=== PATIENT | female | born 1995 | race Hispanic/Latino ===

== ENCOUNTER 2018-11-03 08:34 | Emergency (ER) | payer MEDICAID ==
[2018-11-03 09:12] VITALS: BP 160/88
[2018-11-03 09:48] LABS: Basophils # (Auto) 0.1 K/mm3 (0.0-0.1); Basophils % (Auto) 0.8 % (0.0-1.8); Eosinophils # (Auto) 0.1 K/mm3 (0.0-0.4); Eosinophils % (Auto) 1.1 % (0.0-4.3); Hematocrit 37.1 % (30.3-42.9); Hemoglobin 12.3 gm/dl (10.1-14.3); Lymphocytes # (Auto) 2.5 K/mm3 (1.2-5.4); Lymphocytes % (Auto) 20.7 % (13.4-35.0); Mean Corpuscular HGB Conc 33 % (30-34); Mean Corpuscular Volume 89 fl (79-97); Monocytes # (Auto) 0.5 K/mm3 (0.0-0.8); Monocytes % (Auto) 4.5 % (0.0-7.3); Platelet Count 302 K/mm3 (140-440); Red Blood Count 4.18 M/mm3 (3.65-5.03); Red Cell Distribution Width 15.6 % (13.2-15.2)
--- NOTE | 2018-11-03 10:37 | Emergency Department Report ---
ED Female HPI - General Chief complaint: Vaginal Bleeding Stated complaint: 17WKS PREG/VAGINAL BLEEDING Time Seen by Provider: 11/03/18 10:19 Source: patient Mode of arrival: Ambulatory Limitations: No Limitations - History of Present Illness Initial comments: Eloise is a very pleasant 23-year-old female who presents with vaginal spotting which began today. She has mild pelvic cramping. The bleeding is less than menstrual flow. She has been followed closely by [facility] and high risk maternal- medicine. First , treated by premature and preeclampsia. She is concerned for miscarriage. She has one healthy 3-year-old. She has been doing well throughout this . ultrasound scheduled in 2 weeks. She's had a normal ultrasound a few weeks prior. FERNANDA 04/10/2019 Complaint: vaginal bleeding -: Gradual, This morning Severity: mild Quality: cramping Consistency: constant Improves with: none Worsens with: none Are you Now?: Yes - Related Data Home Medications Medication Instructions Recorded Confirmed Last Taken No Known Home Medications [No 12/16/14 12/16/14 Unknown Reported Home Medications] Allergies Allergy/AdvReac Type Severity Reaction Status Date / Time No Known Allergies Allergy Unverified 07/09/13 10:47 ED Review of Systems ROS: Stated complaint: 17WKS PREG/VAGINAL BLEEDING Other details as noted in HPI Comment: All other systems reviewed and negative Constitutional: denies: fever, malaise Respiratory: denies: cough Cardiovascular: denies: chest pain ED Past Medical Hx - Past Medical History Previous Medical History?: Yes Hx Hypertension: Yes Hx Congestive Heart Failure: No Hx Diabetes: No Hx Deep Vein Thrombosis: No Hx Renal Disease: No Hx Sickle Cell Disease: No Hx Seizures: No Hx Asthma: Yes (Albuterol, Adavir, Flovent) Hx COPD: No Hx HIV: No - Surgical History Past Surgical History?: No - Social History Smoking Status: Current Every Day Smoker Substance Use Type: None - Medications Home Medications: Home Medications Medication Instructions Recorded Confirmed Last Taken Type No Known Home Medications [No 12/16/14 12/16/14 Unknown History Reported Home Medications] ED Physical Exam - General Limitations: No Limitations General appearance: alert, in no apparent distress - Head Head exam: Present: atraumatic, normocephalic - Eye Eye exam: Present: normal appearance - ENT ENT exam: Present: mucous membranes moist - Neck Neck exam: Present: normal inspection, full ROM. Absent: tenderness, meningismus - Respiratory Respiratory exam: Present: normal lung sounds bilaterally. Absent: respiratory distress, wheezes, rales, rhonchi - Cardiovascular Cardiovascular Exam: Present: regular rate, normal rhythm, normal heart sounds. Absent: systolic murmur, diastolic murmur, rubs, gallop - GI/Abdominal GI/Abdominal exam: Present: soft, normal bowel sounds. Absent: distended, tenderness, guarding, rebound - Extremities Exam Extremities exam: Present: normal inspection - Back Exam Back exam: Present: normal inspection - Neurological Exam Neurological exam: Present: alert, oriented X3 - Psychiatric Psychiatric exam: Present: normal affect, normal mood - Skin Skin exam: Present: warm, dry, intact, normal color. Absent: rash ED Course Vital Signs 11/03/18 09:09 Temperature 98.0 F Pulse Rate 110 H Respiratory 20 Rate Blood Pressure 160/88 O2 Sat by Pulse 99 Oximetry ED Medical Decision Making - Lab Data Result diagrams: 11/03/18 09:24 Laboratory Results - last 24 hr 11/03/18 11/03/18 09:24 09:24 WBC 12.1 H RBC 4.18 Hgb 12.3 Hct 37.1 MCV 89 MCH 29 MCHC 33 RDW 15.6 H Plt Count 302 Lymph % (Auto) 20.7 [place] % (Auto) 4.5 Eos % (Auto) 1.1 Baso % (Auto) 0.8 Lymph # 2.5 [place] # 0.5 Eos # 0.1 Baso # 0.1 Seg Neutrophils % 72.9 H Seg Neutrophils # 8.8 H Blood Type A POSITIVE - Medical Decision Making Crystal presents with threatened miscarriage at 17 weeks 3 days gestation. She was given reassurance and instructions for pelvic rest. Blood type A+. Encouraged to follow up with her primary donor technician at [facility] Critical care attestation.: If time is entered above; I have spent that time in minutes in the direct care of this critically ill patient, excluding procedure time. ED Disposition Clinical Impression: Threatened miscarriage Disposition: DC-01 TO HOME OR SELFCARE Is pt being admited?: No Does the pt Need Aspirin: No Condition: Stable Instructions: Threatened Miscarriage (ED) Additional Instructions: Please call your donor technician today.
== END 2018-11-03 10:42 | disposition home or self-care (01) ==
LOC: ED 08:34
DX: O20.0 Threatened abortion (principal); I10 Essential (primary) hypertension; J45.909 Unspecified asthma, uncomplicated; F17.200 Nicotine dependence, unspecified, uncomplicated; Z3A.17 17 weeks gestation of pregnancy
CPT/HCPCS: 36415; 84703; 85025; 86900; 86901; 99283

== ENCOUNTER 2019-03-10 12:55 | Inpatient (IN) | payer MEDICAID ==
[2019-03-10] MEDS ORDERED: LACTATED RINGERS 500 ML IV ONE (13:32)
[2019-03-10 14:27] LABS: Bacteria,Urine 2+ /HPF (Negative); Bilirubin,Urine NEG (Negative); Blood,Urine NEG (Negative); Color,Urine Amber (Yellow); Mucus,Urine 3+ /HPF; Urobilinogen,Urine < 2.0 mg/dL (<2.0)
[2019-03-10 14:28] LABS: WBC,Urine > 182.0 /HPF (0.0-6.0)
[2019-03-10 14:35] LABS: Hematocrit 34.3 % (30.3-42.9); Hemoglobin 11.9 gm/dl (10.1-14.3); Mean Corpuscular HGB Conc 35 % (30-34); Mean Corpuscular Volume 93 fl (79-97); Platelet Count 199 K/mm3 (140-440); Red Blood Count 3.68 M/mm3 (3.65-5.03); Red Cell Distribution Width 16.2 % (13.2-15.2)
[2019-03-10 14:54] LABS: Creatinine,Urine 195.4 mg/dL (0.1-20.0)
[2019-03-10 15:05] LABS: Creatinine 24 Hour,Urine 1.9 (0.8-2.8)
[2019-03-10 15:35] LABS: Alanine Aminotransferase 12 units/L (7-56)
[2019-03-10] MEDS ORDERED: TYLENOL PO PRN ×2 (16:01→21:43)
[2019-03-10] MEDS ORDERED: AMBIEN PO PRN (16:01)
[2019-03-10] MEDS ORDERED: DEEP SEA NS PRN (16:01)
[2019-03-10] MEDS ORDERED: COLACE PO PRN (16:01)
[2019-03-10] MEDS ORDERED: ZOFRAN IV PRN (16:01)
--- NOTE | 2019-03-10 16:20 | History and Physical Report ---
<JOHNATHON MENDEZ - Last Filed: 03/10/19 19:05> History of Present Illness Date of examination: 03/10/19 (pt admitted PreE @ 35w4d) History of present illness: pt sent from office with elevated BPs Pt had collected her 24hr urine Brought to the hospital for results and PIH labs. EDC Confirmation: 04/10/2019 Gestational Age: 11 4/7 weeks Past History : 2 Term Births: 0 Premature Births: 1 Living Children: 1 Para: 1 Mult. Births: 0 Prev : 0 Prev. attempt? none Aborta: 0 Elect. Ab: 0 Spont. Ab: 0 Ectopics: 0 # 1 Delivery date: 12/17/2014 Weeks Gestation: 35 Delivery type: Anesthesia type: epidural Delivery location: [facility] Sex: Male weight: 5#4 Name: Aashish Comments: SROM?/ IOL for PIH Past Medical History: anxiety and depression, taking buspar acid reflux, tums asthma, followed by primary care, rescue inhaler, last use 2-3 months ago Past Surgical History: wisdom teeth extraction, no complications with anesthesia fracture L knee and broken ankles bilaterally Past Medical History Surgery (Non-auctioneer tobacco): wisdom teeth extraction, no complications with anesthesia fracture L knee and broken ankles bilaterally Abnormal PAP: negative ROBIN Exposure: negative Infertility: negative Uterine Anomaly: negative Uterine Surgery (not C/S): negative Other Gynecologic Problems: negative Family Hx: mgf-htn, dm, stroke, asthma pgf-dm, depression pgm- cancer of heart, asthma mother, TIA x4, lung disease brother- autism, ADHD, ADD 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 tobacco smoker x10 years, 3-4 cig/day. Infection History Hx of STD: chlamydia HIV Risk Eval: low risk Hepatitis B Risk Eval: low risk Personal hx. of genital herpes: no Partner hx. of genital herpes: no Rash, Viral, or Febrile illness since last LMP? no Varicella/Chicken Pox Status: Immunized Infection History Comments: chlamydia 2014 Genetic History Congenital Heart Defect: Mom: no Dad: no Gill Disease: Mom: no Dad: no Thalassemia Mom: no Dad: no Neural Tube Defect Mom: no Dad: no Down's Syndrome Mom: no Dad: no Olmna-Sachs Mom: no Dad: no Sickle Cell Disease/Trait Mom: no Dad: no Hemophilia Mom: no Dad: no Muscular Dystrophy Mom: no Dad: no Cystic Fibrosis Mom: no Dad: no Bucks Chorea Mom: no Dad: no Mental Retardation Mom: no Dad: no Fragile X Mom: no Dad: no Other Genetic/Chromosomal Disorder Mom: no Dad: no Child w/other defect Mom: no Dad: no Enviromental Exposures Enviromental Exposures Reviewed Xray Exposure: no Medication, drug, or alcohol use since LMP: no Chemical/Other Exposure: no Exposure to Cat Liter: no Hx of Parvovirus (Fifth Disease): no Occupational Exposure to Children: none Active Medications: BUSPIRONE 15 MG NEEDED () PNV () Current Allergies (reviewed today): No known allergies Past History - Obstetrical History Expected Date of Delivery: 04/10/19 Actual Gestation: 35 Week(s) 4 Day(s) : 2 Para: 1 Hx # Term Pregnancies: 0 Number of Pregnancies: 1 (35w IOL for PreE) Spontaneous Abortions: 0 Induced : 0 Number of Living Children: 1 Medications and Allergies Allergies Allergy/AdvReac Type Severity Reaction Status Date / Time No Known Allergies Allergy Verified 03/10/19 13:31 Home Medications Medication Instructions Recorded Confirmed Last Taken Type No Known Home Medications [No 12/16/14 12/16/14 Unknown History Reported Home Medications] Active Meds: Active Medications Acetaminophen (Tylenol) 650 mg PO Q4H PRN PRN Reason: Pain MILD(1-3)/Fever >100.5/BOWLING Betamethasone Acet/Betameth SodPhos (Celestone Soluspan) 12 mg IM Q24H JONNA Stop: 03/11/19 17:01 Docusate Sodium (Colace) 100 mg PO Q12H PRN PRN Reason: Constipation Guaifenesin (Guaifenesin Dm Syrup) 10 ml PO Q6H PRN PRN Reason: Cough Lactated Ringer's (Lactated Ringers) 1,000 mls @ 125 mls/hr IV DIRECT JONNA Magnesium Sulfate (Magnesium Sulfate 40gm/1000ml) 40 gm in 1,000 mls @ 25 mls/hr IV DIRECT JONNA Magnesium Sulfate (Magnesium Sulfate 4gm/100ml) 4 gm in 100 mls @ 300 mls/hr IV ONCE ONE Stop: 03/10/19 17:20 Multivitamins/Iron/Calcium ( Vitamin) 1 each PO QDAY JONNA Ondansetron HCl (Zofran) 4 mg IV Q6H PRN PRN Reason: Nausea And Vomiting Sodium Chloride (Deep Sea) 2 spray NS Q4H PRN PRN Reason: Congestion Zolpidem Tartrate (Ambien) 10 mg PO ONCE PRN PRN Reason: Sleep - Vital Signs Vital signs: Vital Signs Pulse BP Pulse Ox 71 130/80 96 03/10/19 14:53 03/10/19 14:53 03/10/19 14:53 Temp Pulse Resp BP Pulse Ox 98.7 F 86 20 147/75 95 03/10/19 15:11 03/10/19 16:08 03/10/19 15:11 03/10/19 16:08 03/10/19 15:28 - Physical Exam Breasts: Positive: deferred Cardiovascular: Regular rate, Normal S1, Normal S2 Lungs: Positive: Clear to auscultation Abdomen: Positive: normal appearance, soft, normal bowel sounds. Negative: distention, tenderness Genitourinary (Female): Positive: normal external genitalia Vulva: both: normal Vagina: Positive: normal moisture. Negative: discharge Cervix: Negative: lesion, discharge Uterus: Positive: normal size, normal contour Adnexa: both: normal Anus/Rectum: Positive: normal perianal skin, heme negative. Negative: rectal mass, hemorrhoids Extremities: Positive: edema Deep Tendon Reflex Grade: Normal +2 - Obstetrical FHR: category 1 Uterine Contraction Monitor Mode: External Cervical Dilatation: 0.5 Cervical Effacement Percentage: 30 station: -4 Uterine Contraction Pattern: Absent Uterine Tone Measurement Phase: Resting Results Result Diagrams: 03/10/19 13:35 03/10/19 13:35 Abnormal lab results 03/10/19 03/10/19 03/10/19 Range/Units 13:35 13:35 Unknown MCHC 35 H (30-34) % RDW 16.2 H (13.2-15.2) % Creatinine 0.4 L (0.7-1.2) mg/dL Ur Specific Mize 1.032 H (1.003-1.030) Urine WBC (Auto) > 182.0 H (0.0-6.0) /HPF U Epithel Cells (Auto) 38.0 H (0-13.0) /HPF Urine Creatinine (0.1-20.0) mg/dL Ur Total Protein 24 Hr (2-200) mg/dL Urine Total Protein (5-11.8) mg/dL 03/10/19 Range/Units Unknown MCHC (30-34) % RDW (13.2-15.2) % Creatinine (0.7-1.2) mg/dL Ur Specific Mize (1.003-1.030) Urine WBC (Auto) (0.0-6.0) /HPF U Epithel Cells (Auto) (0-13.0) /HPF Urine Creatinine 195.4 H (0.1-20.0) mg/dL Ur Total Protein 24 Hr 475.00 H (2-200) mg/dL Urine Total Protein 50 H (5-11.8) mg/dL All other labs normal. HBsAg Screen Negative Negative *1 RPR Non Reactive Non Reactive *2 Rubella Antibodies, IgG 1.32 index Immune >0.99 *3 Non-immune <0.90 Equivocal 0.90 - 0.99 Immune >0.99 ABO Grouping A *4 Rh Factor Positive *5 Please note: Prior records for this patient's ABO / Rh type are not available for additional verification. Antibody Screen Negative Negative *6 WBC [H] 11.2 x10E3/uL 3.4-10.8 *7 RBC 3.97 x10E6/uL 3.77-5.28 *8 Hemoglobin 11.5 g/dL 11.1-15.9 *9 Hematocrit 35.5 % 34.0-46.6 *10 MCV 89 fL 79-97 *11 MCH 29.0 pg 26.6-33.0 *12 MCHC 32.4 g/dL 31.5-35.7 *13 RDW [H] 15.6 % 12.3-15.4 *14 Platelets 296 x10E3/uL 150-379 *15 Neutrophils 67 % Not Estab. *16 Lymphs 26 % Not Estab. *17 Monocytes 6 % Not Estab. *18 Eos 1 % Not Estab. *19 Basos 0 % Not Estab. *20 ! Immature Cells <No Reported Value> *21 Neutrophils (Absolute) [H] 7.5 x10E3/uL 1.4-7.0 *22 Lymphs (Absolute) 2.8 x10E3/uL 0.7-3.1 *23 Monocytes(Absolute) 0.6 x10E3/uL 0.1-0.9 *24 Eos (Absolute) 0.1 x10E3/uL 0.0-0.4 *25 Baso (Absolute) 0.0 x10E3/uL 0.0-0.2 *26 ! Immature Granulocytes 0 % Not Estab. *27 ! Immature Grans (Abs) 0.0 x10E3/uL 0.0-0.1 *28 ! NRBC <No Reported Value> *29 Hematology Comments: <No Reported Value> *30 Tests: (2) AFP Tetra (215134) ! Results Report *31 ! Test Results: *Screen Negative* *32 Tests: (3) Panel 136701 ([id number]) HIV Screen 4th Generation wRfx Non Reactive Non Reactive *55 Tests: (4) HCV Ab w/Rflx to Verification (320844) ! HCV Ab <0.1 s/co ratio 0.0-0.9 *56 Tests: (5) Comment: ([id number]) ! Comment: SPRCS *57 Non reactive HCV antibody screen is consistent with no HCV infection, unless recent infection is suspected or other evidence exists to indicate HCV infection. Tests: (6) Urine Culture, Routine ([id number]) Urine Culture, Routine Final report *58 Tests: (7) Result ([id number]) ! Result 1 No growth *59 Assessment and Plan 23yo @ 35 weeks with PreE 24hr urine protein is 475 BP 120-130/70 DTRs 2+, LE edema. Pt c/o BOWLING over the last several days Pt states it has lessened since she has been here resting. aware Orders in EMR BMZ,MGSO4, US ordered. - Patient Problems (1) Pre-eclampsia during in third trimester, antepartum Current Visit: Yes Status: Acute (2) 35 weeks gestation of Current Visit: Yes Status: Acute <ISAAC QUINONEZ - Last Filed: 03/10/19 21:56> History of Present Illness Date of admission: 03/10/19 18:12 Medications and Allergies Active Meds: Active Medications Acetaminophen (Tylenol) 650 mg PO Q6H PRN PRN Reason: Pain MILD(1-3)/Fever >100.5/BOWLING Betamethasone Acet/Betameth SodPhos (Celestone Soluspan) 12 mg IM Q24H JONNA Stop: 03/11/19 17:01 Last Admin: 03/10/19 18:44 Dose: 12 mg Documented by: Docusate Sodium (Colace) 100 mg PO Q12H PRN PRN Reason: Constipation Guaifenesin (Guaifenesin Dm Syrup) 10 ml PO Q6H PRN PRN Reason: Cough Lactated Ringer's (Lactated Ringers) 1,000 mls @ 125 mls/hr IV DIRECT JONNA Last Admin: 03/10/19 18:43 Dose: 125 mls/hr Documented by: Multivitamins/Iron/Calcium ( Vitamin) 1 each PO QDAY [facility] Ondansetron HCl (Zofran) 4 mg IV Q6H PRN PRN Reason: Nausea And Vomiting Sodium Chloride (Deep Sea) 2 spray NS Q4H PRN PRN Reason: Congestion Zolpidem Tartrate (Ambien) 10 mg PO ONCE PRN PRN Reason: Sleep - Vital Signs Vital signs: Vital Signs Pulse BP Pulse Ox 71 130/80 96 03/10/19 14:53 03/10/19 14:53 03/10/19 14:53 Temp Pulse Resp BP Pulse Ox 98.7 F 76 20 122/70 94 03/10/19 15:11 03/10/19 21:49 03/10/19 15:11 03/10/19 20:38 03/10/19 21:49 Results Result Diagrams: 03/10/19 13:35 03/10/19 13:35 Abnormal lab results 03/10/19 03/10/19 03/10/19 Range/Units 13:35 13:35 Unknown MCHC 35 H (30-34) % RDW 16.2 H (13.2-15.2) % Creatinine 0.4 L (0.7-1.2) mg/dL Ur Specific Mize 1.032 H (1.003-1.030) Urine WBC (Auto) > 182.0 H (0.0-6.0) /HPF U Epithel Cells (Auto) 38.0 H (0-13.0) /HPF Urine Creatinine (0.1-20.0) mg/dL Ur Total Protein 24 Hr (2-200) mg/dL Urine Total Protein (5-11.8) mg/dL 03/10/19 Range/Units Unknown MCHC (30-34) % RDW (13.2-15.2) % Creatinine (0.7-1.2) mg/dL Ur Specific Mize (1.003-1.030) Urine WBC (Auto) (0.0-6.0) /HPF U Epithel Cells (Auto) (0-13.0) /HPF Urine Creatinine 195.4 H (0.1-20.0) mg/dL Ur Total Protein 24 Hr 475.00 H (2-200) mg/dL Urine Total Protein 50 H (5-11.8) mg/dL All other labs normal. Assessment and Plan - Patient Problems (1) 35 weeks gestation of Current Visit: Yes Status: Acute (2) Chronic hypertension with superimposed preeclampsia Current Visit: Yes Status: Acute Plan to address problem: Complete BMZ Will plan for Induction if she progresses to severe features. Otherwise observe closely (3) BMI 45.0-49.9, adult Current Visit: Yes Status: Acute (4) Anxiety Current Visit: Yes Status: Chronic (5) Chronic GERD Current Visit: Yes Status: Acute (6) Asthma Current Visit: Yes Status: Chronic
[2019-03-10] MEDS ORDERED: MAGNESIUM SULFATE 40GM/1000ML 40 GM/1,000 ML BAG IV SCH (17:00)
[2019-03-10] MEDS ORDERED: MAGNESIUM SULFATE 4GM/100ML 4 GM/100 ML BAG IV ONE ×2 (17:01→19:33)
--- NOTE | 2019-03-10 17:04 | Ultrasound Report ---
ULTRASOUND OBSTETRIC INDICATION: Assess well-being. Clinical Gestational Age (GA): 35 weeks, 4 days TECHNIQUE: Transabdominal. COMPARISON: None available. FINDINGS: There is a single intrauterine with a heart rate of 139 bpm. The BPP score is 8/8. IMPRESSION: Single live intrauterine with a normal biophysical profile. Signer Name: Mitesh Low MD Signed: 03/10/2019 5:00 PM Workstation Name: [id number]
--- NOTE | 2019-03-10 17:36 | Ultrasound Report ---
Follow-up OB ultrasound INDICATION: Preeclampsia. Assess well-being. COMPARISON: None available. FINDINGS: There is a single live intrauterine with a heart rate of 139 bpm. The biophysical profile s core is 8/8. IMPRESSION: Single live intrauterine with a normal biophysical profile. Signer Name: Mitesh Low MD Signed: 03/10/2019 5:32 PM Workstation Name: [id number]
[2019-03-10] MEDS: LACTATED RINGERS 1,000 ML IV SCH (18:43)
[2019-03-10] MEDS: CELESTONE SOLUSPAN IM SCH (18:44)
[2019-03-11] MEDS: LACTATED RINGERS 1,000 ML IV SCH (06:17)
--- NOTE | 2019-03-11 07:34 | Progress Note ---
Assessment and Plan patient sleeping sounding through ctx, she reports BOWLING rated 4/10 "all night" but reports BOWLING is better now. b/p 140/70's with an outlier of 157/119. Second dose of steroids due @ 1844. Pt not currently taking any antihypertensive medications. 24h urine TP 475, now hx with htn w/ superimposed pre-e. Dr. Sifuentes consulted for plan of care. - Patient Problems (1) Headache Current Visit: Yes Status: Acute Qualifiers: Headache type: tension-type Headache chronicity pattern: chronic headache (2) 35 weeks gestation of Current Visit: Yes Status: Acute (3) BMI 45.0-49.9, adult Current Visit: Yes Status: Acute (4) Chronic hypertension with superimposed preeclampsia Current Visit: Yes Status: Acute Subjective - Subjective Date of service: 03/11/19 Principal diagnosis: IUP @ 35+5, superimposed Pre-e Patient reports: new complaints (BOWLING "all night"), movement normal, contractions, no loss of fluid, no vaginal bleeding Objective - Vital Signs Vital Signs: Vital Signs - 12hr 03/10/19 03/10/19 03/10/19 20:38 20:43 20:48 Temperature Pulse Rate 74 82 86 Respiratory Rate Blood Pressure 122/70 Blood Pressure [Right] O2 Sat by Pulse 97 97 Oximetry 03/10/19 03/10/19 03/10/19 20:53 20:58 21:03 Temperature Pulse Rate 95 H 87 88 Respiratory Rate Blood Pressure Blood Pressure [Right] O2 Sat by Pulse 96 96 96 Oximetry 03/10/19 03/10/19 03/10/19 21:08 21:13 21:18 Temperature Pulse Rate 81 84 80 Respiratory Rate Blood Pressure Blood Pressure [Right] O2 Sat by Pulse 95 96 97 Oximetry 03/10/19 03/10/19 03/10/19 21:27 21:32 21:37 Temperature Pulse Rate 81 82 81 Respiratory Rate Blood Pressure Blood Pressure [Right] O2 Sat by Pulse 97 96 96 Oximetry 03/10/19 03/10/19 03/10/19 21:42 21:44 21:47 Temperature Pulse Rate 76 78 72 Respiratory Rate Blood Pressure Blood Pressure [Right] O2 Sat by Pulse 96 94 94 Oximetry 03/10/19 03/10/19 03/10/19 21:49 22:14 22:19 Temperature Pulse Rate 76 80 95 H Respiratory Rate Blood Pressure Blood Pressure [Right] O2 Sat by Pulse 94 97 96 Oximetry 03/10/19 03/10/19 03/10/19 22:24 22:29 22:34 Temperature Pulse Rate 67 68 71 Respiratory Rate Blood Pressure Blood Pressure [Right] O2 Sat by Pulse 96 96 97 Oximetry 03/10/19 03/10/19 03/10/19 22:39 22:44 22:49 Temperature Pulse Rate 80 81 77 Respiratory Rate Blood Pressure Blood Pressure [Right] O2 Sat by Pulse 96 97 96 Oximetry 03/10/19 03/10/19 03/10/19 22:54 22:59 23:04 Temperature Pulse Rate 76 90 70 Respiratory Rate Blood Pressure Blood Pressure [Right] O2 Sat by Pulse 96 96 95 Oximetry 03/10/19 03/10/19 03/10/19 23:09 23:14 23:19 Temperature Pulse Rate 69 72 75 Respiratory Rate Blood Pressure Blood Pressure [Right] O2 Sat by Pulse 95 94 94 Oximetry 03/10/19 03/10/19 03/10/19 23:20 23:24 23:26 Temperature Pulse Rate 76 70 71 Respiratory Rate Blood Pressure Blood Pressure [Right] O2 Sat by Pulse 94 95 94 Oximetry 03/10/19 03/10/19 03/10/19 23:29 23:31 23:34 Temperature Pulse Rate 70 69 69 Respiratory Rate Blood Pressure Blood Pressure [Right] O2 Sat by Pulse 96 94 95 Oximetry 03/10/19 03/10/19 03/10/19 23:37 23:39 23:44 Temperature Pulse Rate 70 76 71 Respiratory Rate Blood Pressure Blood Pressure [Right] O2 Sat by Pulse 94 94 93 Oximetry 03/10/19 03/10/19 03/10/19 23:49 23:50 23:54 Temperature Pulse Rate 80 75 90 Respiratory Rate Blood Pressure Blood Pressure [Right] O2 Sat by Pulse 95 94 93 Oximetry 03/10/19 03/10/19 03/11/19 23:55 23:59 00:02 Temperature Pulse Rate 70 83 82 Respiratory Rate Blood Pressure Blood Pressure [Right] O2 Sat by Pulse 93 94 94 Oximetry 03/11/19 03/11/19 03/11/19 00:04 00:09 00:14 Temperature Pulse Rate 70 69 74 Respiratory Rate Blood Pressure Blood Pressure [Right] O2 Sat by Pulse 92 93 93 Oximetry 03/11/19 03/11/19 03/11/19 00:19 00:24 00:29 Temperature Pulse Rate 67 69 71 Respiratory Rate Blood Pressure Blood Pressure [Right] O2 Sat by Pulse 93 93 93 Oximetry 03/11/19 03/11/19 03/11/19 00:34 00:35 00:39 Temperature Pulse Rate 72 76 69 Respiratory Rate Blood Pressure Blood Pressure [Right] O2 Sat by Pulse 92 94 92 Oximetry 03/11/19 03/11/19 03/11/19 00:44 00:49 00:54 Temperature Pulse Rate 76 68 72 Respiratory Rate Blood Pressure Blood Pressure [Right] O2 Sat by Pulse 93 92 93 Oximetry 03/11/19 03/11/19 03/11/19 00:57 00:59 01:02 Temperature Pulse Rate 81 64 72 Respiratory Rate Blood Pressure Blood Pressure [Right] O2 Sat by Pulse 94 95 93 Oximetry 03/11/19 03/11/19 03/11/19 01:04 01:09 01:14 Temperature Pulse Rate 72 67 71 Respiratory Rate Blood Pressure Blood Pressure [Right] O2 Sat by Pulse 94 93 93 Oximetry 03/11/19 03/11/19 03/11/19 01:19 01:24 01:29 Temperature Pulse Rate 70 69 74 Respiratory Rate Blood Pressure Blood Pressure [Right] O2 Sat by Pulse 93 94 95 Oximetry 03/11/19 03/11/19 03/11/19 01:39 01:44 01:47 Temperature Pulse Rate 72 72 101 H Respiratory Rate Blood Pressure Blood Pressure [Right] O2 Sat by Pulse 94 94 94 Oximetry 03/11/19 03/11/19 03/11/19 01:49 01:54 01:59 Temperature Pulse Rate 96 H 71 69 Respiratory Rate Blood Pressure Blood Pressure [Right] O2 Sat by Pulse 93 93 93 Oximetry 03/11/19 03/11/19 03/11/19 02:03 02:04 02:09 Temperature Pulse Rate 83 81 71 Respiratory Rate Blood Pressure Blood Pressure [Right] O2 Sat by Pulse 94 95 93 Oximetry 03/11/19 03/11/19 03/11/19 02:14 02:19 02:23 Temperature Pulse Rate 68 83 69 Respiratory Rate Blood Pressure Blood Pressure [Right] O2 Sat by Pulse 94 93 94 Oximetry 03/11/19 03/11/19 03/11/19 02:24 02:29 02:34 Temperature Pulse Rate 63 64 69 Respiratory Rate Blood Pressure Blood Pressure [Right] O2 Sat by Pulse 94 94 93 Oximetry 03/11/19 03/11/19 03/11/19 02:39 02:44 02:49 Temperature Pulse Rate 70 67 68 Respiratory Rate Blood Pressure Blood Pressure [Right] O2 Sat by Pulse 93 93 94 Oximetry 03/11/19 03/11/19 03/11/19 02:54 02:58 02:59 Temperature Pulse Rate 69 77 84 Respiratory Rate Blood Pressure Blood Pressure [Right] O2 Sat by Pulse 93 94 95 Oximetry 03/11/19 03/11/19 03/11/19 03:03 03:04 05:30 Temperature 98.7 F Pulse Rate 94 H 81 70 Respiratory 22 Rate Blood Pressure Blood Pressure 145/75 [Right] O2 Sat by Pulse 94 94 Oximetry 03/11/19 03/11/19 05:56 06:01 Temperature Pulse Rate 106 H 70 Respiratory Rate Blood Pressure 157/119 145/75 Blood Pressure [Right] O2 Sat by Pulse Oximetry - Exam Breasts: normal Cardiovascular: Regular rate Lungs: Clear to auscultation, Normal air movement Abdomen: Present: normal appearance, soft Vulva: both: normal Uterus: Present: normal FHR: category 1 Uterine Contraction Monitor Mode: External Uterine Contraction Frequency (min): 3-5 Uterine Contraction Pattern: Regular Uterine Tone Measurement Phase: Contraction Uterine Contraction Intensity: Mild Extremities: normal Deep Tendon Reflex Grade: Normal +2 - Labs Labs: Abnormal Labs 03/10/19 03/10/19 03/10/19 13:35 13:35 Unknown MCHC 35 H RDW 16.2 H Creatinine 0.4 L Ur Specific [place] 1.032 H Urine WBC (Auto) > 182.0 H U Epithel Cells (Auto) 38.0 H Urine Creatinine Ur Total Protein 24 Hr Urine Total Protein 03/10/19 Unknown MCHC RDW Creatinine Ur Specific [place] Urine WBC (Auto) U Epithel Cells (Auto) Urine Creatinine 195.4 H Ur Total Protein 24 Hr 475.00 H Urine Total Protein 50 H Laboratory Results - last 24 hr 03/10/19 03/10/19 03/10/19 13:35 13:35 13:35 WBC 10.7 RBC 3.68 Hgb 11.9 Hct 34.3 MCV 93 MCH 32 MCHC 35 H RDW 16.2 H Plt Count 199 Creatinine 0.4 L Estimated GFR > 60 Uric Acid 4.0 AST 17 ALT 12 Lactate Dehydrogenase 177 Urine Color Urine Turbidity Urine pH Ur Specific [place] Urine Protein Urine Glucose (UA) Urine Ketones Urine Blood Urine Nitrite Urine Bilirubin Urine Urobilinogen Ur Leukocyte Esterase Urine WBC (Auto) Urine RBC (Auto) U Epithel Cells (Auto) Urine Bacteria (Auto) Urine Mucus Urine Total Volume Urine Creatinine Ur Creatinine 24 Hour Ur Total Protein 24 Hr Urine Total Protein HIV 1&2 Antibody Rapid Non react HIV P24 Antigen Non react Blood Type Antibody Screen 03/10/19 03/10/19 03/10/19 18:26 Unknown Unknown WBC RBC Hgb Hct MCV MCH MCHC RDW Plt Count Creatinine Estimated GFR Uric Acid AST ALT Lactate Dehydrogenase Urine Color Kristie Urine Turbidity Cloudy Urine pH 5.0 Ur Specific [place] 1.032 H Urine Protein 100 mg/dl Urine Glucose (UA) Neg Urine Ketones Tr Urine Blood Neg Urine Nitrite Neg Urine Bilirubin Neg Urine Urobilinogen < 2.0 Ur Leukocyte Esterase Lg Urine WBC (Auto) > 182.0 H Urine RBC (Auto) 45.0 U Epithel Cells (Auto) 38.0 H Urine Bacteria (Auto) 2+ Urine Mucus 3+ Urine Total Volume 950 Urine Creatinine 195.4 H Ur Creatinine 24 Hour 1.9 Ur Total Protein 24 Hr 475.00 H Urine Total Protein 50 H HIV 1&2 Antibody Rapid HIV P24 Antigen Blood Type A POSITIVE Antibody Screen Negative
[2019-03-11] MEDS ORDERED: CERVIDIL VG ONE ×2 (08:01→19:00)
--- NOTE | 2019-03-11 08:06 | Event Note ---
Date: 03/11/19 pt now has superimposed pre-e w/ severe features. Will start low dose pitocin to begin induction process. Plan of care developed with Dr. Sifuentes.
[2019-03-11] MEDS ORDERED: PITOCin/NS 30 UNIT/500ML 30 UNITS/500 ML BAG IV SCH (09:00)
[2019-03-11] MEDS: MAGNESIUM SULFATE 40GM/1000ML 40 GM/1,000 ML BAG IV SCH (09:34)
[2019-03-11] MEDS: BUSPAR PO SCH (11:01)
[2019-03-11] MEDS: PRENATAL VITAMIN PO SCH (11:01)
--- NOTE | 2019-03-11 17:18 | Event Note ---
Date: 03/11/19 Pt s/p low dose pitocin and s/o second dose of BMZ. will con't MgSO4. Plan will be to allow pt to eat dinner, have pericare and then place cervidil this pm.
[2019-03-11] MEDS: CELESTONE SOLUSPAN IM SCH (18:32)
[2019-03-11] MEDS ORDERED: AMPICILLIN/NS 2 GM/100 ML 2 GM/100 ML BAG IV ONE (23:00)
[2019-03-11] MEDS ORDERED: AMPICILLIN 2 GM in NACL 0.9% 50 ML IV ONE (23:44)
[2019-03-11] MEDS ORDERED: AMPICILLIN 1 GM in NACL 0.9% 50 ML IV ONE (23:46)
--- NOTE | 2019-03-11 23:49 | Event Note ---
Date: 03/11/19 Called by RN pt c/o pain given order to check pt. Pt cx now 4-5cm. Cervidil pulled. ampicillin started and will give IV Pain meds a this time. Pt considering an epidural. Will allow antibx to go in prior to starting pitocin or AROM.
[2019-03-12] MEDS ORDERED: SUBLIMAZE IV ONE (00:07)
[2019-03-12] MEDS ORDERED: MARCAINE 0.25% INFILTRATI ONE (04:42)
[2019-03-12] MEDS ORDERED: NARCAN 2 MG/2 ML IV PRN (05:11)
--- NOTE | 2019-03-12 05:12 | Anesthesia Consultation ---
Anesthesia Consult and Med Hx Date of service: 03/12/19 - Airway Anesthetic Teeth Evaluation: Good ROM Head & Neck: Adequate Mental/Hyoid Distance: Adequate Mallampati Class: Class III Intubation Access Assessment: Probably Good - Pulmonary Exam CTA: Yes - Cardiac Exam Cardiac Exam: RRR - Pre-Operative Health Status ASA Pre-Surgery Classification: ASA3 Proposed Anesthetic Plan: Epidural - Pulmonary Hx Smoking: Yes Hx Asthma: Yes (Albuterol, Adavir, Flovent) Hx Respiratory Symptoms: No SOB: No COPD: No Home Oxygen Therapy: No Hx Pneumonia: No Hx Sleep Apnea: No - Cardiovascular System Hx Hypertension: Yes Hx Coronary Artery Disease: No Hx Heart Attack/AMI: No Hx Angina: No Hx Percutaneous Transluminal Coronary Angioplasty (PTCA): No Hx Cardia Arrhythmia: No Hx Pacemaker: No Hx Internal Defibrillator: No Hx Valvular Heart Disease: No Hx Heart Murmur: No Hx Peripheral Vascular Disease: No - Central Nervous System Hx Neuromuscular Disorder: No Hx Seizures: No CVA: No Hx Back Pain: Yes Hx Psychiatric Problems: No - Gastrointestinal Hx Ulcer: No Hx Gastroesophageal Reflux Disease: Yes - Endocrine Hx Renal Disease: No Hx End Stage Renal Disease: No Hx Cirrhosis: No Hx Liver Disease: No Hx Insulin Dependent Diabetes: No Hx Non-Insulin Dependent Diabetes: No Hx Thyroid Disease: No Hx Hypothyroidism: No Hx Hyperthyroidism: No - Hematic Hx Anemia: No Hx Sickle Cell Disease: No - Other Systems Hx Alcohol Use: No Hx Substance Use: No Hx Cancer: No Hx Obesity: Yes
--- NOTE | 2019-03-12 05:51 | Progress Note ---
Assessment and Plan - Patient Problems (1) 35 weeks gestation of Current Visit: Yes Status: Acute (2) BMI 45.0-49.9, adult Current Visit: Yes Status: Acute (3) Chronic hypertension with superimposed preeclampsia Current Visit: Yes Status: Acute Plan to address problem: -GBS STATUS IS UNKNOWN SECOND DOSE OF ANTIBX TO BE GIVEN AT 0600. WILL START PITOCIN AT THIS TIME -S/P SROM WITH CLEAR FLUID -PROGRESSION TO 4 TO 5 CM ON THE CERVICAL WHICH HAS SINCE BEEN REMOVED. PT NOT CESILIA IRREGULARLY. -ANTICIPATE Subjective - Subjective Date of service: 03/12/19 Principal diagnosis: IUP @ 35+6, superimposed Pre-e; unknown GBS Interval history: pT S/P AROM WITH CLEAR FLUID NOTED. DUE TO BODY HABITUS AND PT HAVING PAINFUL CONTRACTIONS IT HAS BEEN DIFFICULT PER RN TO TRACE THE BABY. IUPC AND ISE PLACED AT THIS TIME W/O DIFFICULTY. REASON FOR PLACEMENT GIVEN AND PT GAVE VERBAL CONSENT FOR PLACEMENT OF THE DEVICES. Patient reports: new complaints (BOWLING "all night"), loss of fluid, movement normal, contractions, no vaginal bleeding Objective - Vital Signs Vital Signs: Vital Signs - 12hr 03/11/19 03/11/19 03/11/19 18:11 18:13 18:42 Temperature 97.8 F Pulse Rate 88 94 H Blood Pressure 123/59 118/59 O2 Sat by Pulse Oximetry 03/11/19 03/11/19 03/11/19 19:11 19:41 20:11 Temperature Pulse Rate 97 H 83 90 Blood Pressure 144/65 133/61 129/59 O2 Sat by Pulse Oximetry 03/11/19 03/11/19 03/11/19 20:41 21:11 21:41 Temperature Pulse Rate 81 86 80 Blood Pressure 122/60 123/57 126/58 O2 Sat by Pulse Oximetry 03/11/19 03/11/19 03/11/19 22:11 22:17 22:22 Temperature Pulse Rate 83 78 87 Blood Pressure 121/77 O2 Sat by Pulse 97 97 Oximetry 03/11/19 03/11/19 03/11/19 22:27 22:32 22:37 Temperature Pulse Rate 89 88 88 Blood Pressure O2 Sat by Pulse 97 97 97 Oximetry 03/11/19 03/11/19 03/11/19 22:41 22:42 22:47 Temperature Pulse Rate 81 89 87 Blood Pressure 116/54 O2 Sat by Pulse 97 97 Oximetry 03/11/19 03/11/19 03/11/19 22:52 23:02 23:07 Temperature Pulse Rate 87 91 H 96 H Blood Pressure O2 Sat by Pulse 96 97 96 Oximetry 03/11/19 03/11/19 03/11/19 23:10 23:12 23:17 Temperature Pulse Rate 94 H 103 H 102 H Blood Pressure 137/65 118/57 O2 Sat by Pulse 92 97 98 Oximetry 03/11/19 03/11/19 03/11/19 23:22 23:27 23:32 Temperature Pulse Rate 100 H 99 H 102 H Blood Pressure O2 Sat by Pulse 98 97 97 Oximetry 03/11/19 03/11/19 03/11/19 23:37 23:40 23:42 Temperature Pulse Rate 102 H 96 H 97 H Blood Pressure 132/64 O2 Sat by Pulse 97 94 96 Oximetry 03/11/19 03/11/19 03/11/19 23:47 23:52 23:57 Temperature Pulse Rate 101 H 102 H 98 H Blood Pressure O2 Sat by Pulse 96 95 95 Oximetry 03/12/19 03/12/19 03/12/19 00:02 00:06 00:07 Temperature Pulse Rate 98 H 102 H 101 H Blood Pressure O2 Sat by Pulse 95 94 95 Oximetry 03/12/19 03/12/19 03/12/19 00:10 00:12 00:17 Temperature Pulse Rate 100 H 100 H 99 H Blood Pressure 135/61 O2 Sat by Pulse 94 94 Oximetry 03/12/19 03/12/19 03/12/19 00:18 00:22 00:27 Temperature Pulse Rate 102 H 111 H 105 H Blood Pressure O2 Sat by Pulse 94 95 96 Oximetry 03/12/19 03/12/19 03/12/19 00:32 00:37 00:40 Temperature Pulse Rate 105 H 103 H 101 H Blood Pressure 132/62 O2 Sat by Pulse 96 97 Oximetry 03/12/19 03/12/19 03/12/19 00:42 00:47 00:52 Temperature Pulse Rate 106 H 106 H 104 H Blood Pressure O2 Sat by Pulse 96 96 96 Oximetry 03/12/19 03/12/19 03/12/19 00:57 01:02 01:07 Temperature Pulse Rate 103 H 112 H 103 H Blood Pressure O2 Sat by Pulse 95 97 96 Oximetry 03/12/19 03/12/19 03/12/19 01:11 01:12 01:17 Temperature Pulse Rate 100 H 98 H 98 H Blood Pressure 130/61 O2 Sat by Pulse 93 95 96 Oximetry 03/12/19 03/12/19 03/12/19 01:22 01:27 01:30 Temperature Pulse Rate 98 H 101 H 98 H Blood Pressure O2 Sat by Pulse 94 94 94 Oximetry 03/12/19 03/12/19 03/12/19 01:32 01:37 01:41 Temperature Pulse Rate 107 H 97 H 94 H Blood Pressure 134/64 O2 Sat by Pulse 96 96 94 Oximetry 03/12/19 03/12/19 03/12/19 01:42 01:47 01:52 Temperature Pulse Rate 101 H 107 H 93 H Blood Pressure O2 Sat by Pulse 96 94 97 Oximetry 03/12/19 03/12/19 03/12/19 01:57 02:02 02:07 Temperature Pulse Rate 97 H 102 H 93 H Blood Pressure O2 Sat by Pulse 97 96 96 Oximetry 03/12/19 03/12/19 03/12/19 02:12 02:17 02:22 Temperature Pulse Rate 93 H 93 H 95 H Blood Pressure 135/73 O2 Sat by Pulse 94 96 94 Oximetry 03/12/19 03/12/19 03/12/19 02:27 02:32 02:37 Temperature Pulse Rate 100 H 100 H 93 H Blood Pressure O2 Sat by Pulse 97 97 96 Oximetry 03/12/19 03/12/19 03/12/19 02:41 02:42 02:47 Temperature Pulse Rate 92 H 90 95 H Blood Pressure 137/69 O2 Sat by Pulse 96 96 Oximetry 03/12/19 03/12/19 03/12/19 02:52 02:57 03:02 Temperature Pulse Rate 95 H 93 H 90 Blood Pressure O2 Sat by Pulse 97 97 96 Oximetry 03/12/19 03/12/19 03/12/19 03:07 03:10 03:12 Temperature Pulse Rate 89 95 H 92 H Blood Pressure 134/64 O2 Sat by Pulse 96 97 Oximetry 03/12/19 03/12/19 03/12/19 03:17 03:22 03:27 Temperature Pulse Rate 90 102 H 105 H Blood Pressure O2 Sat by Pulse 96 98 98 Oximetry 03/12/19 03/12/19 03/12/19 03:32 03:41 03:43 Temperature Pulse Rate 103 H 101 H 98 H Blood Pressure 133/66 O2 Sat by Pulse 98 97 Oximetry 03/12/19 03/12/19 03/12/19 03:48 03:53 03:58 Temperature Pulse Rate 113 H 97 H 102 H Blood Pressure O2 Sat by Pulse 98 97 98 Oximetry 03/12/19 03/12/19 03/12/19 04:03 04:08 04:10 Temperature Pulse Rate 96 H 95 H 90 Blood Pressure 129/73 O2 Sat by Pulse 98 97 Oximetry 03/12/19 03/12/19 03/12/19 04:13 04:18 04:23 Temperature Pulse Rate 95 H 92 H 91 H Blood Pressure O2 Sat by Pulse 97 97 98 Oximetry 03/12/19 03/12/19 03/12/19 04:28 04:33 04:38 Temperature Pulse Rate 93 H 93 H Blood Pressure O2 Sat by Pulse 98 97 100 Oximetry 03/12/19 03/12/19 03/12/19 04:44 04:45 04:49 Temperature Pulse Rate 103 H 108 H 108 H Blood Pressure O2 Sat by Pulse 97 94 97 Oximetry 03/12/19 03/12/19 03/12/19 04:54 04:55 04:58 Temperature Pulse Rate 105 H 102 H 104 H Blood Pressure 168/88 O2 Sat by Pulse 96 94 Oximetry 03/12/19 03/12/19 03/12/19 04:59 05:04 05:07 Temperature Pulse Rate 108 H 118 H 111 H Blood Pressure 159/75 O2 Sat by Pulse 96 96 Oximetry 03/12/19 03/12/19 03/12/19 05:09 05:11 05:14 Temperature Pulse Rate 114 H 108 H 105 H Blood Pressure 145/69 O2 Sat by Pulse 98 97 Oximetry 03/12/19 03/12/19 03/12/19 05:18 05:19 05:24 Temperature Pulse Rate 101 H 100 H 109 H Blood Pressure O2 Sat by Pulse 94 94 96 Oximetry 03/12/19 03/12/19 03/12/19 05:27 05:29 05:34 Temperature Pulse Rate 99 H 104 H 100 H Blood Pressure O2 Sat by Pulse 94 95 95 Oximetry 03/12/19 03/12/19 03/12/19 05:35 05:39 05:41 Temperature Pulse Rate 100 H 104 H 106 H Blood Pressure 183/84 O2 Sat by Pulse 94 98 Oximetry 03/12/19 03/12/19 05:44 05:49 Temperature Pulse Rate 100 H 106 H Blood Pressure O2 Sat by Pulse 98 97 Oximetry - Exam Vulva: both: normal (COPIUS AMOUNT OF CLEAR FLIUD NOTED ON EXAM) FHR: category 1, other Uterine Contraction Monitor Mode: Palpation Cervical Dilatation: 4.5 (CERVIX VERY ANTERIOR BEHIND THE PUBIC SYPMPYSIS) Cervical Effacement Percentage: 60 station: -1 Uterine Contraction Pattern: Regular Uterine Tone Measurement Phase: Resting Uterine Contraction Intensity: Moderate Deep Tendon Reflex Grade: Normal +2 - Labs Labs: Abnormal Labs 03/10/19 03/10/19 03/10/19 13:35 13:35 Unknown MCHC 35 H RDW 16.2 H Creatinine 0.4 L Magnesium Ur Specific [place] 1.032 H Urine WBC (Auto) > 182.0 H U Epithel Cells (Auto) 38.0 H Urine Creatinine Ur Total Protein 24 Hr Urine Total Protein 03/10/19 03/11/19 03/11/19 Unknown 16:31 19:43 MCHC RDW Creatinine Magnesium 3.90 H 4.10 H Ur Specific [place] Urine WBC (Auto) U Epithel Cells (Auto) Urine Creatinine 195.4 H Ur Total Protein 24 Hr 475.00 H Urine Total Protein 50 H 03/12/19 01:47 MCHC RDW Creatinine Magnesium 4.60 H Ur Specific [place] Urine WBC (Auto) U Epithel Cells (Auto) Urine Creatinine Ur Total Protein 24 Hr Urine Total Protein Laboratory Results - last 24 hr 03/10/19 03/11/19 03/11/19 13:35 16:31 19:43 Magnesium 3.90 H 4.10 H RPR Nonreactive 03/12/19 01:47 Magnesium 4.60 H RPR
[2019-03-12] MEDS ORDERED: fentaNYL-BUPIV 2 MCG/ML-0.125% 200 MCG/100 ML BAG EPIDURAL SCH (06:00)
[2019-03-12] MEDS: AMPICILLIN/NS 1 GM/50 ML 1 GM/50 ML BAG IV SCH ×2 (06:00→10:20)
[2019-03-12] MEDS: MAGNESIUM SULFATE 40GM/1000ML 40 GM/1,000 ML BAG IV SCH (06:57)
[2019-03-12] MEDS ORDERED: PITOCin/NS 30 UNIT/500ML 30 UNITS/500 ML BAG IV SCH (07:00)
--- NOTE | 2019-03-12 09:31 | Progress Note ---
Assessment and Plan Patient resting comfortably in bed, reports being comfortable s/p epidural placement, denies any complaints or concerns. SVE is unchanged from prior exam. IUPC and FSE in place and functioning properly. Abx infused, pitocin initiated this morning, currently on 4mu/min. Magnesium is currently infusing. Assessment is WNL, BPs stable. Patient denies any BOWLING, visual disturbances, RUQ or epigastric pain, difficulty breathing, or any other complaints. Moya catheter in place, draining dark yellow urine. last mag level at 711 is 4.7. Reviewed POC and assessment with Dr. Mcfarland, continue current POC. Subjective - Subjective Date of service: 03/12/19 Principal diagnosis: IUP @ 35+6, superimposed Pre-e; unknown GBS Patient reports: loss of fluid (continued, clear), movement normal, contractions (reports feeling "some", reports not painful since epidural), no vaginal bleeding Objective - Vital Signs Vital Signs: Vital Signs - 12hr 03/11/19 03/11/19 03/11/19 21:41 22:11 22:17 Temperature Pulse Rate 80 83 78 Respiratory Rate Blood Pressure 126/58 121/77 O2 Sat by Pulse 97 Oximetry 03/11/19 03/11/19 03/11/19 22:22 22:27 22:32 Temperature Pulse Rate 87 89 88 Respiratory Rate Blood Pressure O2 Sat by Pulse 97 97 97 Oximetry 03/11/19 03/11/19 03/11/19 22:37 22:41 22:42 Temperature Pulse Rate 88 81 89 Respiratory Rate Blood Pressure 116/54 O2 Sat by Pulse 97 97 Oximetry 03/11/19 03/11/19 03/11/19 22:47 22:52 23:02 Temperature Pulse Rate 87 87 91 H Respiratory Rate Blood Pressure O2 Sat by Pulse 97 96 97 Oximetry 03/11/19 03/11/19 03/11/19 23:07 23:10 23:12 Temperature Pulse Rate 96 H 94 H 103 H Respiratory Rate Blood Pressure 137/65 118/57 O2 Sat by Pulse 96 92 97 Oximetry 03/11/19 03/11/19 03/11/19 23:17 23:22 23:27 Temperature Pulse Rate 102 H 100 H 99 H Respiratory Rate Blood Pressure O2 Sat by Pulse 98 98 97 Oximetry 03/11/19 03/11/19 03/11/19 23:32 23:37 23:40 Temperature Pulse Rate 102 H 102 H 96 H Respiratory Rate Blood Pressure 132/64 O2 Sat by Pulse 97 97 94 Oximetry 03/11/19 03/11/19 03/11/19 23:42 23:47 23:52 Temperature Pulse Rate 97 H 101 H 102 H Respiratory Rate Blood Pressure O2 Sat by Pulse 96 96 95 Oximetry 03/11/19 03/12/19 03/12/19 23:57 00:02 00:06 Temperature Pulse Rate 98 H 98 H 102 H Respiratory Rate Blood Pressure O2 Sat by Pulse 95 95 94 Oximetry 03/12/19 03/12/19 03/12/19 00:07 00:10 00:12 Temperature Pulse Rate 101 H 100 H 100 H Respiratory Rate Blood Pressure 135/61 O2 Sat by Pulse 95 94 Oximetry 03/12/19 03/12/19 03/12/19 00:17 00:18 00:22 Temperature Pulse Rate 99 H 102 H 111 H Respiratory Rate Blood Pressure O2 Sat by Pulse 94 94 95 Oximetry 03/12/19 03/12/19 03/12/19 00:27 00:32 00:37 Temperature Pulse Rate 105 H 105 H 103 H Respiratory Rate Blood Pressure O2 Sat by Pulse 96 96 97 Oximetry 03/12/19 03/12/19 03/12/19 00:40 00:42 00:47 Temperature Pulse Rate 101 H 106 H 106 H Respiratory Rate Blood Pressure 132/62 O2 Sat by Pulse 96 96 Oximetry 03/12/19 03/12/19 03/12/19 00:52 00:57 01:02 Temperature Pulse Rate 104 H 103 H 112 H Respiratory Rate Blood Pressure O2 Sat by Pulse 96 95 97 Oximetry 03/12/19 03/12/19 03/12/19 01:07 01:11 01:12 Temperature Pulse Rate 103 H 100 H 98 H Respiratory Rate Blood Pressure 130/61 O2 Sat by Pulse 96 93 95 Oximetry 03/12/19 03/12/19 03/12/19 01:17 01:22 01:27 Temperature Pulse Rate 98 H 98 H 101 H Respiratory Rate Blood Pressure O2 Sat by Pulse 96 94 94 Oximetry 03/12/19 03/12/19 03/12/19 01:30 01:32 01:37 Temperature Pulse Rate 98 H 107 H 97 H Respiratory Rate Blood Pressure O2 Sat by Pulse 94 96 96 Oximetry 03/12/19 03/12/19 03/12/19 01:41 01:42 01:47 Temperature Pulse Rate 94 H 101 H 107 H Respiratory Rate Blood Pressure 134/64 O2 Sat by Pulse 94 96 94 Oximetry 03/12/19 03/12/19 03/12/19 01:52 01:57 02:02 Temperature Pulse Rate 93 H 97 H 102 H Respiratory Rate Blood Pressure O2 Sat by Pulse 97 97 96 Oximetry 03/12/19 03/12/19 03/12/19 02:07 02:12 02:17 Temperature Pulse Rate 93 H 93 H 93 H Respiratory Rate Blood Pressure 135/73 O2 Sat by Pulse 96 94 96 Oximetry 03/12/19 03/12/19 03/12/19 02:22 02:27 02:32 Temperature Pulse Rate 95 H 100 H 100 H Respiratory Rate Blood Pressure O2 Sat by Pulse 94 97 97 Oximetry 03/12/19 03/12/19 03/12/19 02:37 02:41 02:42 Temperature Pulse Rate 93 H 92 H 90 Respiratory Rate Blood Pressure 137/69 O2 Sat by Pulse 96 96 Oximetry 03/12/19 03/12/19 03/12/19 02:47 02:52 02:57 Temperature Pulse Rate 95 H 95 H 93 H Respiratory Rate Blood Pressure O2 Sat by Pulse 96 97 97 Oximetry 03/12/19 03/12/19 03/12/19 03:02 03:07 03:10 Temperature Pulse Rate 90 89 95 H Respiratory Rate Blood Pressure 134/64 O2 Sat by Pulse 96 96 Oximetry 03/12/19 03/12/19 03/12/19 03:12 03:17 03:22 Temperature Pulse Rate 92 H 90 102 H Respiratory Rate Blood Pressure O2 Sat by Pulse 97 96 98 Oximetry 03/12/19 03/12/19 03/12/19 03:27 03:32 03:41 Temperature Pulse Rate 105 H 103 H 101 H Respiratory Rate Blood Pressure 133/66 O2 Sat by Pulse 98 98 Oximetry 03/12/19 03/12/19 03/12/19 03:43 03:48 03:53 Temperature Pulse Rate 98 H 113 H 97 H Respiratory Rate Blood Pressure O2 Sat by Pulse 97 98 97 Oximetry 03/12/19 03/12/19 03/12/19 03:58 04:03 04:08 Temperature Pulse Rate 102 H 96 H 95 H Respiratory Rate Blood Pressure O2 Sat by Pulse 98 98 97 Oximetry 03/12/19 03/12/19 03/12/19 04:10 04:13 04:18 Temperature Pulse Rate 90 95 H 92 H Respiratory Rate Blood Pressure 129/73 O2 Sat by Pulse 97 97 Oximetry 03/12/19 03/12/19 03/12/19 04:23 04:28 04:33 Temperature Pulse Rate 91 H 93 H 93 H Respiratory Rate Blood Pressure O2 Sat by Pulse 98 98 97 Oximetry 03/12/19 03/12/19 03/12/19 04:38 04:44 04:45 Temperature Pulse Rate 103 H 108 H Respiratory Rate Blood Pressure O2 Sat by Pulse 100 97 94 Oximetry 03/12/19 03/12/19 03/12/19 04:49 04:54 04:55 Temperature Pulse Rate 108 H 105 H 102 H Respiratory Rate Blood Pressure 168/88 O2 Sat by Pulse 97 96 Oximetry 03/12/19 03/12/19 03/12/19 04:58 04:59 05:04 Temperature Pulse Rate 104 H 108 H 118 H Respiratory Rate Blood Pressure O2 Sat by Pulse 94 96 96 Oximetry 03/12/19 03/12/19 03/12/19 05:07 05:09 05:11 Temperature Pulse Rate 111 H 114 H 108 H Respiratory Rate Blood Pressure 159/75 145/69 O2 Sat by Pulse 98 Oximetry 03/12/19 03/12/19 03/12/19 05:14 05:18 05:19 Temperature Pulse Rate 105 H 101 H 100 H Respiratory Rate Blood Pressure O2 Sat by Pulse 97 94 94 Oximetry 03/12/19 03/12/19 03/12/19 05:24 05:27 05:29 Temperature Pulse Rate 109 H 99 H 104 H Respiratory Rate Blood Pressure O2 Sat by Pulse 96 94 95 Oximetry 03/12/19 03/12/19 03/12/19 05:34 05:35 05:39 Temperature Pulse Rate 100 H 100 H 104 H Respiratory Rate Blood Pressure O2 Sat by Pulse 95 94 98 Oximetry 03/12/19 03/12/19 03/12/19 05:41 05:44 05:49 Temperature Pulse Rate 106 H 100 H 106 H Respiratory Rate Blood Pressure 183/84 O2 Sat by Pulse 98 97 Oximetry 03/12/19 03/12/19 03/12/19 05:54 05:57 05:59 Temperature Pulse Rate 92 H 94 H 98 H Respiratory Rate Blood Pressure O2 Sat by Pulse 95 94 96 Oximetry 03/12/19 03/12/19 03/12/19 06:04 06:07 06:09 Temperature Pulse Rate 90 87 86 Respiratory Rate Blood Pressure O2 Sat by Pulse 97 94 94 Oximetry 03/12/19 03/12/19 03/12/19 06:10 06:12 06:14 Temperature Pulse Rate 84 82 98 H Respiratory Rate Blood Pressure 149/81 O2 Sat by Pulse 94 95 Oximetry 03/12/19 03/12/19 03/12/19 06:19 06:23 06:25 Temperature Pulse Rate 86 169 H 81 Respiratory Rate Blood Pressure O2 Sat by Pulse 97 88 97 Oximetry 03/12/19 03/12/19 03/12/19 06:30 06:35 06:37 Temperature Pulse Rate 84 88 72 Respiratory Rate Blood Pressure O2 Sat by Pulse 96 96 94 Oximetry 03/12/19 03/12/19 03/12/19 06:40 06:41 06:45 Temperature Pulse Rate 84 76 78 Respiratory Rate Blood Pressure 139/81 O2 Sat by Pulse 96 97 Oximetry 03/12/19 03/12/19 03/12/19 06:49 06:50 06:55 Temperature Pulse Rate 83 81 102 H Respiratory Rate Blood Pressure O2 Sat by Pulse 94 95 96 Oximetry 03/12/19 03/12/19 03/12/19 06:58 07:00 07:05 Temperature Pulse Rate 85 100 H 75 Respiratory Rate Blood Pressure O2 Sat by Pulse 94 98 97 Oximetry 03/12/19 03/12/19 03/12/19 07:10 07:11 07:15 Temperature Pulse Rate 77 81 95 H Respiratory Rate Blood Pressure 143/76 O2 Sat by Pulse 97 98 Oximetry 03/12/19 03/12/19 03/12/19 07:20 07:25 07:30 Temperature Pulse Rate 98 H 102 H 86 Respiratory Rate Blood Pressure O2 Sat by Pulse 98 98 97 Oximetry 03/12/19 03/12/19 03/12/19 07:35 07:40 07:45 Temperature Pulse Rate 78 93 H 85 Respiratory Rate Blood Pressure 144/75 O2 Sat by Pulse 96 96 98 Oximetry 03/12/19 03/12/19 03/12/19 07:50 07:55 08:00 Temperature 98.1 F Pulse Rate 85 97 H 83 Respiratory 14 Rate Blood Pressure O2 Sat by Pulse 98 98 99 Oximetry 03/12/19 03/12/19 03/12/19 08:05 08:10 08:15 Temperature Pulse Rate 86 97 H 98 H Respiratory Rate Blood Pressure 140/86 O2 Sat by Pulse 98 99 98 Oximetry 03/12/19 03/12/19 03/12/19 08:20 08:25 08:30 Temperature Pulse Rate 100 H 94 H 92 H Respiratory Rate Blood Pressure O2 Sat by Pulse 98 98 97 Oximetry 03/12/19 03/12/19 03/12/19 08:35 08:40 08:42 Temperature Pulse Rate 92 H 90 87 Respiratory Rate Blood Pressure 145/75 O2 Sat by Pulse 96 96 Oximetry 03/12/19 03/12/19 03/12/19 08:45 08:50 08:55 Temperature Pulse Rate 93 H 90 90 Respiratory Rate Blood Pressure O2 Sat by Pulse 96 96 96 Oximetry 03/12/19 03/12/19 03/12/19 09:00 09:05 09:10 Temperature Pulse Rate 95 H 86 92 H Respiratory Rate Blood Pressure O2 Sat by Pulse 96 95 97 Oximetry 03/12/19 03/12/19 03/12/19 09:11 09:15 09:20 Temperature Pulse Rate 93 H 89 89 Respiratory Rate Blood Pressure 145/78 O2 Sat by Pulse 97 96 Oximetry - Exam Cardiovascular: Regular rate, Normal S1, Normal S2 Lungs: Clear to auscultation, Normal air movement Abdomen: Present: normal appearance, soft, normal bowel sounds. Absent: distention, tenderness Vulva: both: normal Uterus: Present: normal FHR: auscultation normal Uterine Contraction Monitor Mode: External Cervical Dilatation: 4 Cervical Effacement Percentage: 70 station: -2 Uterine Contraction Pattern: Irregular Uterine Tone Measurement Phase: Contraction Uterine Contraction Intensity: Moderate Extremities: normal Deep Tendon Reflex Grade: Normal +2 - Labs Labs: Abnormal Labs 03/10/19 03/10/19 03/10/19 13:35 13:35 Unknown MCHC 35 H RDW 16.2 H Creatinine 0.4 L Magnesium Ur Specific [place] 1.032 H Urine WBC (Auto) > 182.0 H U Epithel Cells (Auto) 38.0 H Urine Creatinine Ur Total Protein 24 Hr Urine Total Protein 03/10/19 03/11/19 03/11/19 Unknown 16:31 19:43 MCHC RDW Creatinine Magnesium 3.90 H 4.10 H Ur Specific [place] Urine WBC (Auto) U Epithel Cells (Auto) Urine Creatinine 195.4 H Ur Total Protein 24 Hr 475.00 H Urine Total Protein 50 H 03/12/19 03/12/19 01:47 07:12 MCHC RDW Creatinine Magnesium 4.60 H 4.70 H Ur Specific [place] Urine WBC (Auto) U Epithel Cells (Auto) Urine Creatinine Ur Total Protein 24 Hr Urine Total Protein Laboratory Results - last 24 hr 03/10/19 03/11/19 03/11/19 13:35 16:31 19:43 Magnesium 3.90 H 4.10 H RPR Nonreactive 03/12/19 03/12/19 01:47 07:12 Magnesium 4.60 H 4.70 H RPR
[2019-03-12] MEDS: BUSPAR PO SCH (10:17)
[2019-03-12] MEDS: PRENATAL VITAMIN PO SCH (10:19)
[2019-03-12] MEDS ORDERED: MARCAINE 0.5% INFILTRATI ONE (12:08)
[2019-03-12] MEDS ORDERED: SUBLIMAZE ONE (12:09)
[2019-03-12] MEDS ORDERED: PITOCin/NS 20 UNIT/1000ML DRIP 20,000 MILLIUNITS/1,000 ML BAG IV ONE (14:23)
[2019-03-12] MEDS ORDERED: DULCOLAX PR PRN (14:59)
[2019-03-12] MEDS ORDERED: LANSINOH TP PRN (14:59)
[2019-03-12] MEDS ORDERED: MILK OF MAGNESIA PO PRN (14:59)
[2019-03-12] MEDS ORDERED: TUCKS PAD TP PRN (14:59)
[2019-03-12] MEDS ORDERED: REGLAN PO PRN (14:59)
[2019-03-12] MEDS ORDERED: SODIUM CHLORIDE FLUSH SYRINGE 10 ML IV NR (15:00)
[2019-03-12] MEDS ORDERED: PITOCin/NS 20 UNIT/1000ML DRIP 20 UNITS/1,000 ML BAG IV SCH (15:00)
--- NOTE | 2019-03-12 15:10 | Procedure Note ---
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 Mcfarland d/t avulsed cord after delivery of infant) Delivery cord: 3 umbilical vessels Episiotomy: none Delivery laceration: none Anesthesia: epidural Delivery comments: of viable male infant over intact perineum. 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 Cord avulsion from placenta noted with slight traction after delivery of . Dr. Mcfarland notified and at bedside, manual extraction performed. Placenta appears complete and intact. Manual sweep and bedside US performed to confirm. Hemostasis achieved with fundal massage and IV pitocin. Perineum intact. EBL 400. Mother tolerated procedures well, denies any pain. Patient reports remaining comfortable. Infant apgars 8/9, wt 6#10. Moya catheter replaced and pericare provided. VSSAF. Mother and infant remain LDR stable. - Infant A at 1 minute: 8 at 5 minutes: 9 Gender: Male (6#10)
[2019-03-12] MEDS ORDERED: LACTATED RINGERS 1,000 ML IV SCH (16:00)
[2019-03-12] MEDS: IBUPROFEN PO SCH ×2 (16:00→19:52)
[2019-03-12] MEDS ORDERED: ANCEF/STERILE WATER 2 GM/20 ML 2 GM/20 ML SYRINGE IV ONE (16:00)
[2019-03-12] MEDS: TYLENOL PO PRN (17:04)
[2019-03-12] MEDS ORDERED: BENADRYL PO PRN (23:21)
[2019-03-13 01:55] LABS: Hematocrit 31.8 % (30.3-42.9); Hemoglobin 10.6 gm/dl (10.1-14.3)
[2019-03-13] MEDS: MAGNESIUM SULFATE 40GM/1000ML 40 GM/1,000 ML BAG IV SCH (02:46)
[2019-03-13] MEDS: IBUPROFEN PO SCH ×3 (04:37→16:47)
[2019-03-13] MEDS ORDERED: BOOSTRIX IM ONE (06:00)
[2019-03-13] MEDS: TYLENOL PO PRN (09:07)
[2019-03-13] MEDS: BUSPAR PO SCH (10:09)
[2019-03-13] MEDS: PRENATAL VITAMIN PO SCH (10:09)
--- NOTE | 2019-03-13 11:46 | Progress Note ---
Assessment and Plan Teansfer to MB Continue routine PP pathway - Patient Problems (1) Normal vaginal delivery Current Visit: Yes Status: Acute (2) Chronic hypertension with superimposed preeclampsia Current Visit: Yes Status: Acute (3) BMI 45.0-49.9, adult Current Visit: Yes Status: Acute (4) Anxiety Current Visit: Yes Status: Chronic (5) Chronic GERD Current Visit: Yes Status: Acute (6) Asthma Current Visit: Yes Status: Chronic Subjective - Subjective Date of service: 03/13/19 Principal diagnosis: PPD#1 , CHTN with PreE, obesity Patient reports: appetite normal, voiding normally Objective - Vital Signs Latest vital signs: Vital Signs Temp Pulse Resp BP Pulse Ox 03/13/19 11:42 88 118/58 03/13/19 09:48 97 H 129/65 03/13/19 08:50 98.5 F 18 03/13/19 08:48 80 131/75 03/13/19 07:48 78 142/82 03/13/19 06:48 62 125/72 03/13/19 05:48 75 134/79 03/13/19 04:48 79 125/65 03/13/19 04:00 98.2 F 18 03/13/19 03:48 81 121/73 03/13/19 02:48 79 139/81 03/13/19 01:48 89 132/97 03/13/19 00:48 97 H 132/82 03/12/19 23:48 92 H 133/69 03/12/19 23:30 98.6 F 20 03/12/19 22:48 78 118/60 03/12/19 22:07 83 126/63 03/12/19 19:48 93 H 124/57 03/12/19 19:40 97.5 F L 18 03/12/19 18:48 85 117/57 03/12/19 17:48 100 H 134/77 03/12/19 16:38 102 H 123/56 03/12/19 16:30 98.1 F 18 03/12/19 16:23 99 H 132/60 03/12/19 16:15 98.1 F 18 03/12/19 16:08 102 H 130/60 03/12/19 15:53 93 H 132/55 03/12/19 15:37 103 H 127/60 03/12/19 15:23 100 H 145/62 07// 15:15 98.2 F 18 / 15:11 100 H 143/67 / 15:07 101 H 130/60 07/ 14:57 101 H 127/80 / 14:48 100 H 97 07/ 14:43 106 H 97 / 14:38 112 H 97 03/12/19 14:33 105 H 96 03/12/19 14:28 116 H 96 07/ 14:24 142 H 122/84 03/12/19 14:23 121 H 96 07/ 14:18 117 H 98 07/ 14:13 117 H 98 03/12/19 14:08 116 H 98 03/12/19 14:03 116 H 98 03/12/19 13:58 115 H 97 03/12/19 13:53 96 H 138/71 97 07/ 13:48 101 H 97 03/12/19 13:43 96 H 96 07/ 13:38 93 H 95 07/ 13:33 91 H 97 07/ 13:28 91 H 96 / 13:24 89 135/75 07/ 13:23 91 H 95 07/ 13:18 95 H 97 07/ 13:13 113 H 98 07/ 13:08 100 H 94 07/ 13:07 95 H 94 / 13:03 102 H 98 / 12:58 94 H 98 / 12:53 98 H 131/70 97 07/ 12:48 91 H 98 07/ 12:43 104 H 97 07/19 12:38 98 H 96 / 12:33 103 H 97 / 12:28 101 H 98 07/ 12:23 103 H 97 07/ 12:22 96 H 124/58 07/ 12:18 97 H 122/58 97 07//19 12:13 97 H 95 07/ 12:10 99 H 123/67 03/12/19 11:59 91 H 95 07/ 11:57 94 H 93 03/12/19 11:54 110 H 96 03/12/19 11:52 92 H 94 03/12/19 11:49 90 95 03/12/19 11:48 97.8 F 18 Intake and Output 03/12/19 03/13/19 03/13/19 22:59 06:59 14:59 Intake Total 990.833 Output Total 850 1300 500 Balance -850 -309.167 -500 Intake: IV 990.833 MAGNESIUM SULFATE 40GM/ 990.833 1000ML 40 gm In 1,000 ml @ 2 GM/HR 50 mls/hr IV DIRECT JONNA Rx#:[id number] Output: Urine 850 1300 500 Indwelling Catheter 850 1300 500 Other: Total, Output Amount 250 600 500 Estimated Blood Loss 400 - Exam Breasts: Present: normal Cardiovascular: Present: Regular rate Lungs: Present: Clear to auscultation, Normal air movement Abdomen: Present: soft. Absent: distention, tenderness Uterus: Present: other (unable to palpate d/t obesity) Extremities: Present: edema (trace). Absent: tenderness - Labs Labs: Abnormal lab results 03/12/19 03/12/19 03/13/19 Range/Units 12:45 20:46 01:36 Magnesium 5.50 H 5.10 H 5.40 H (1.7-2.3) mg/dL 03/13/19 Range/Units 08:03 Magnesium 5.30 H (1.7-2.3) mg/dL
[2019-03-13] MEDS ORDERED: LANSINOH TP PRN (12:58)
[2019-03-13] MEDS ORDERED: MILK OF MAGNESIA PO PRN (12:58)
[2019-03-13] MEDS ORDERED: BENADRYL PO PRN (12:58)
[2019-03-13] MEDS ORDERED: DULCOLAX PR PRN (12:58)
[2019-03-13] MEDS ORDERED: SODIUM CHLORIDE FLUSH SYRINGE 10 ML IV NR (12:58)
[2019-03-13] MEDS ORDERED: TYLENOL PO PRN (12:58)
[2019-03-13] MEDS ORDERED: TUCKS PAD TP PRN (12:58)
[2019-03-13] MEDS ORDERED: PITOCin/NS 20 UNIT/1000ML DRIP 20 UNITS/1,000 ML BAG IV SCH (14:00)
[2019-03-13] MEDS ORDERED: NORCO 5/325 PO ONE (22:47)
--- NOTE | 2019-03-14 09:02 | Discharge Summary ---
Providers - Providers Date of Admission: 03/10/19 18:12 Date of discharge: 03/14/19 Attending physician: ISAAC QUINONEZ Primary care physician: SANNA BROWN Hospitalization Reason for admission: elevated BP, superimposed Pre-E with severe features, IOL Condition: Good Pertinent studies: post delivery H&H 10.6/31.8 Procedures: Hospital course: uneventful delivery and course Disposition: DC-01 TO HOME OR SELFCARE Core Measure Documentation - Palliative Care Palliative Care/ Comfort Measures: Not Applicable - Core Measures Any of the following diagnoses?: none Exam - Constitutional Vitals: Temp Pulse Resp BP Pulse Ox 98.2 F 82 18 123/64 98 03/13/19 23:34 03/13/19 23:34 03/13/19 23:34 03/13/19 23:34 03/13/19 23:34 General appearance: Present: no acute distress, well-nourished - EENT Eyes: Present: PERRL ENT: hearing intact, clear oral mucosa - Neck Neck: Present: supple, normal ROM - Respiratory Respiratory effort: normal Respiratory: bilateral: CTA - Cardiovascular Rhythm: regular Heart Sounds: Present: S1 & S2. Absent: rub, click - Extremities Extremities: pulses symmetrical, No edema Peripheral Pulses: within normal limits - Abdominal General gastrointestinal: Present: soft, non-tender, non-distended, normal bowel sounds Female genitourinary: Present: normal - Integumentary Integumentary: Present: clear, warm, dry - Musculoskeletal Musculoskeletal: gait normal, strength equal bilaterally - Psychiatric Psychiatric: appropriate mood/affect, intact judgment & insight - Neurologic Neurologic: CNII-XII intact, moves all extremities - Additional findings Additional findings: Patient resting in bed, infant, reports feeling well. She denies any complaints or concerns other than "tired". Fundus is firm, ML, U/1. Vaginal bleeding is small, patient denies any large clots or heavy bleeding. She reports pain is well "ok" now with ibuprofen, she required a one time dose of [place] for pain last night. Encouraged pt to increase water intake, empty bladder frequently, and ambulate throughout the day, and to try to nap when baby does to help bring pain level down. She agrees and reports understanding. DWP post delivery lab values, she denies any dizziness or feeling faint with ambulation or position changes. VSSAF. Plan Activity: no restrictions Diet: regular Follow up with: ISAAC QUINONEZ MD [Staff Physician] - 7 Days (Congratulations! Please call [phone] to schedule a post Blood Pressure check appointment in 1 week. Please schedule your son's circumcision appointment in 1 week. Bring EMLA cream prescription with you to his appointment and await further instructions for use. Call with any questions or concers. ) Prescriptions: Lidocain2.5%/Prilocai2.5% [Emla] 5 gm TP ONCE #1 tube
[2019-03-14] MEDS: IBUPROFEN PO SCH ×2 (09:47→16:20)
[2019-03-14 16:50] VITALS: BP 134/71
== END 2019-03-14 17:30 | disposition home or self-care (01) | DRG 774 ==
LOC: TRG 12:55 → LD 18:12 → OB 03-13 12:36
PROVIDERS: ADMIT Obstetrics & Gynecology; ATTEND Obstetrics & Gynecology
PROC: 3E0P7VZ Introduction of Hormone into Female Reproductive, Via Natural or Artificial Opening (ICD-10-PCS; 2019-03-10)
PROC: 10E0XZZ Delivery of Products of Conception, External Approach (ICD-10-PCS; principal; 2019-03-12)
PROC: 10H07YZ Insertion of Other Device into Products of Conception, Via Natural or Artificial Opening (ICD-10-PCS; 2019-03-12)
PROC: 10907ZC Drainage of Amniotic Fluid, Therapeutic from Products of Conception, Via Natural or Artificial Opening (ICD-10-PCS; 2019-03-12)
PROC: 3E0R3BZ Introduction of Anesthetic Agent into Spinal Canal, Percutaneous Approach (ICD-10-PCS; 2019-03-12)
PROC: 00HU33Z Insertion of Infusion Device into Spinal Canal, Percutaneous Approach (ICD-10-PCS; 2019-03-12)
PROC: 3E0234Z Introduction of Serum, Toxoid and Vaccine into Muscle, Percutaneous Approach (ICD-10-PCS; 2019-03-13)
DX: O11.4 Pre-existing hypertension with pre-eclampsia, complicating childbirth (principal); Z3A.35 35 weeks gestation of pregnancy; Z37.0 Single live birth; Z23 Encounter for immunization; F41.9 Anxiety disorder, unspecified; F32.9 Major depressive disorder, single episode, unspecified; F17.210 Nicotine dependence, cigarettes, uncomplicated; E66.9 Obesity, unspecified; O99.344 Other mental disorders complicating childbirth; O99.334 Smoking (tobacco) complicating childbirth; O99.214 Obesity complicating childbirth; O99.62 Diseases of the digestive system complicating childbirth; O99.52 Diseases of the respiratory system complicating childbirth; O69.89X0 Labor and delivery complicated by other cord complications, not applicable or unspecified; O10.02 Pre-existing essential hypertension complicating childbirth; K21.9 Gastro-esophageal reflux disease without esophagitis; J45.909 Unspecified asthma, uncomplicated; Z82.49 Family history of ischemic heart disease and other diseases of the circulatory system; Z83.3 Family history of diabetes mellitus; Z82.3 Family history of stroke; Z82.5 Family history of asthma and other chronic lower respiratory diseases; Z81.8 Family history of other mental and behavioral disorders
CPT/HCPCS: 36415; 59200; 76816; 76819; 81001; 82565; 82570; 83615; 83735; 84156; 84450; 84460; 84550; 85014; 85018; 85027; 86592; 86850; 86900; 86901; 87806; 88307; 90471; 90715; G0378; J0290; J0702; J2590; J3010; J3475; J7120